=== PATIENT | female | born 1985 | race Caucasian/White ===

== ENCOUNTER 2018-10-27 14:56 | Inpatient (IN) | payer MEDICAID ==
[~2018-10-27 14:56] MED LIST: EPHEDrine 50 MG INJ; OXYTOCIN 30 UNITS/LR 500 ML BAG IV; PHENYLephrine 10 MG INJ
[2018-10-27] MEDS ORDERED: CARBOPROST 250 MCG INJ IM (16:00)
[2018-10-27] MEDS ORDERED: MISOPROSTOL 200 MCG TAB PR ×2 (16:00→19:00)
[2018-10-27] MEDS ORDERED: METHYLERGONOVINE 0.2 MG INJ IM (16:00)
[2018-10-27] MEDS ORDERED: OXYTOCIN 30 UNITS/LR 500 ML IV (16:00)
[2018-10-27 16:32] LABS: ADD MAN DIFF? NO
[2018-10-27 16:33] LABS: WHITE BLOOD COUNT 8.2 10^3/ul (4.8-10.8)
[2018-10-27 16:33] LABS: BASOPHIL # 0.1 10^3/ul (0.0-0.1); BASOPHILS % 0.6 % (0.0-2.0); EOSINOPHILS # 0.1 10^3/ul (0.0-0.5); EOSINOPHILS % 1.1 % (0.0-7.0); HEMATOCRIT 40.3 % (37.0-47.0); HEMOGLOBIN 13.3 g/dl (12.0-16.0); LYMPHOCYTES # 2.2 10^3/ul (0.8-2.9); LYMPHOCYTES % 26.3 % (15.0-51.0); MEAN CORPUSCULAR VOLUME 93.9 fl (82.0-101.0); MEAN PLATELET VOLUME 9.9 fl (7.4-10.4); MONOCYTE # 0.6 10^3/ul (0.3-0.9); MONOCYTES % 6.9 % (0.0-11.0); NEUTROPHIL # 5.1 10^3/ul (1.6-7.5); NEUTROPHILS % 62.5 % (39.0-77.0); NUCLEATED RED BLOOD CELLS% 0.2 /100WBC (0.0-0.0); PLATELET COUNT 273 10^3/UL (140-415); RED BLOOD COUNT 4.29 10^6/ul (4.20-5.40); RED CELL DISTRIBUTION WIDTH 14.9 % (11.5-14.5)
[2018-10-27 16:54] LABS: INR 0.92; PROTIME 12.5 Sec (11.9-14.9)
[2018-10-27 16:55] LABS: PARTIAL THROMBOPLASTIN TIME 26.3 Sec (23.0-35.0)
[2018-10-27] MEDS: LACTATED RINGER'S 1,000 ML IV ×2 (16:59→19:44)
[2018-10-27 17:30] LABS: HEPATITIS B SURFACE ANTIGEN NEGATIVE (NEGATIVE)
[2018-10-27] MEDS ORDERED: HYDROmorphONE 1 MG/5 ML IV SYRINGE IV ×3 (18:00)
[2018-10-27] MEDS ORDERED: FENTAnyl 50 MCG/ML VIAL IV ×3 (18:00)
[2018-10-27] MEDS ORDERED: METOCLOPRAMIDE 10 MG INJ IV (18:00)
[2018-10-27] MEDS ORDERED: HYDROmorphONE 0.5 MG/0.5 ML SYG IV (18:00)
[2018-10-27] MEDS ORDERED: ALBUTEROL 0.083% (NEB) 2.5 MG/3 ML AMP HHN (18:00)
[2018-10-27] MEDS ORDERED: DIPHENHYDRAMINE 50 MG INJ IV ×2 (18:00)
[2018-10-27] MEDS ORDERED: NALOXONE (0.4 MG/ML) INJ IV (18:00)
[2018-10-27] MEDS ORDERED: ONDANSETRON 4 MG INJ IV ×2 (18:00)
[2018-10-27] MEDS ORDERED: morphine SULFATE/PF (10 MG/10 ML) INJ (18:37)
[2018-10-27] MEDS ORDERED: OXYCODONE/ACETAMINOPHEN (5/325) TAB PO (19:00)
[2018-10-27] MEDS ORDERED: NA PHOSPHATE/BIPHOS 133 ML ENEMA PR (19:00)
[2018-10-27 19:30] LABS: CBV Base Excess 0.1 mmol/L; CBV COHb 0.5 %; CBV Oxygen Sat 53.7 mmHG; CBV Total Hemglobin 13.3 g/dl; Cord Blood Venous pO2 30.9 mmHG (15.0-45.0); Fraction OxyHgb Cord Venous 53.2 %; MODE ROOM AIR; MetHgb Cord Venous 0.4 %; Sample Type Blood venous; Site CORD
[2018-10-27 19:33] LABS: AADO2 Cord Arterial 68.2 mmHg; Arterial Cord Blood pCO2 43.3 mmHG (25-50); CBA Base Excess -0.3 mmol/L; CBA COHb 0.9 %; CBA Oxygen Sat 53.2 mmHG; CBA Total Hemglobin 13.1 g/dl; Cord Blood Arterial pO2 29.7 mmHG (15.0-45.0); Fraction OxyHgb Cord Arterial 52.5 %; MODE ROOM AIR; MetHgb Cord Arterial 0.4 %; Site CORD
[2018-10-27] MEDS: OXYTOCIN 30 UNITS/LR 500 ML IV ×2 (20:02→23:39)
[2018-10-27] MEDS: KETOROLAC 30 MG INJ IV (20:40)
[2018-10-27] MEDS: SENNA/DOCUSATE NA (8.6MG/50MG) TAB PO (21:00)
[2018-10-27 22:21] LABS: RAPID PLASMA REAGIN NONREACTIVE (NR)
[2018-10-27] MEDS: HYDROmorphONE 0.5 MG/0.5 ML SYG IV (22:49)
[2018-10-28] MEDS: KETOROLAC 30 MG INJ IV ×2 (03:24→14:59)
[2018-10-28] MEDS: LACTATED RINGER'S 1,000 ML IV ×4 (03:28→23:53)
[2018-10-28] MEDS: HYDROmorphONE 0.5 MG/0.5 ML SYG IV ×2 (07:41→11:50)
[2018-10-28 08:30] LABS: ADD MAN DIFF? NO
[2018-10-28 08:38] LABS: BASOPHILS % 0.5 % (0.0-2.0); EOSINOPHILS # 0.1 10^3/ul (0.0-0.5); EOSINOPHILS % 1.5 % (0.0-7.0); HEMATOCRIT 37.8 % (37.0-47.0); HEMOGLOBIN 12.1 g/dl (12.0-16.0); LYMPHOCYTES # 1.6 10^3/ul (0.8-2.9); LYMPHOCYTES % 19.8 % (15.0-51.0); MEAN CORPUSCULAR HEMOGLOBIN 30.3 pg (29.0-33.0); MEAN CORPUSCULAR VOLUME 94.7 fl (82.0-101.0); MEAN PLATELET VOLUME 9.3 fl (7.4-10.4); MONOCYTE # 0.4 10^3/ul (0.3-0.9); NEUTROPHIL # 5.7 10^3/ul (1.6-7.5); NEUTROPHILS % 72.2 % (39.0-77.0); PLATELET COUNT 208 10^3/UL (140-415); RED BLOOD COUNT 3.99 10^6/ul (4.20-5.40); RED CELL DISTRIBUTION WIDTH 14.9 % (11.5-14.5)
[2018-10-28 08:38] LABS: WHITE BLOOD COUNT 7.9 10^3/ul (4.8-10.8)
[2018-10-28] MEDS: SENNA/DOCUSATE NA (8.6MG/50MG) TAB PO ×2 (09:35→23:36)
[2018-10-28] MEDS: CEFAZOLIN 2 GM/50 ML (PMX) 50 ML IVPB (17:05)
[2018-10-28] MEDS: WITCH HAZEL/GLYCERIN PAD PR (17:37)
[2018-10-28] MEDS: OXYCODONE/ACETAMINOPHEN (5/325) TAB PO (20:00)
[2018-10-28] MEDS: IBUPROFEN 600 MG TAB PO (23:36)
[2018-10-29] MEDS: OXYCODONE/ACETAMINOPHEN (5/325) TAB PO ×4 (00:41→21:06)
[2018-10-29] MEDS: IBUPROFEN 600 MG TAB PO ×2 (06:05→11:30)
[2018-10-29] MEDS: SENNA/DOCUSATE NA (8.6MG/50MG) TAB PO ×2 (10:45→21:05)
[2018-10-29] MEDS: LANOLIN HPA 1 PKT TOP (12:48)
[2018-10-29] MEDS: IBUPROFEN 800 MG TAB PO ×2 (17:45→23:48)
[2018-10-29] MEDS ORDERED: IBUPROFEN 600 MG TAB PO (18:00)
[2018-10-30] MEDS: OXYCODONE/ACETAMINOPHEN (5/325) TAB PO ×5 (00:43→22:18)
[2018-10-30] MEDS: IBUPROFEN 800 MG TAB PO ×3 (05:40→18:28)
[2018-10-30] MEDS: SENNA/DOCUSATE NA (8.6MG/50MG) TAB PO ×2 (08:40→22:18)
[2018-10-30] MEDS: DIPHTH/TET/ACEL PERTUSS (ADULT) 0.5 ML VIAL IM* (09:53)
[2018-10-30] MEDS: MEASLES,MUMPS,RUBELLA VACCINE INJ SC* (09:54)
[2018-10-31] MEDS: IBUPROFEN 800 MG TAB PO ×4 (00:07→17:53)
[2018-10-31] MEDS: SENNA/DOCUSATE NA (8.6MG/50MG) TAB PO (08:40)
[2018-10-31] MEDS: CEFAZOLIN 2 GM/50 ML (PMX) 50 ML IVPB (11:26)
== END 2018-10-31 17:55 | disposition home or self-care (01) | DRG 786 ==
LOC: L-D 14:56 → PP1 10-28 16:12
PROVIDERS: Specialist
PROC: 10D00Z1 Extraction of Products of Conception, Low, Open Approach (ICD-10-PCS; principal; 2018-10-27 17:00)
DX: O65.5 Obstructed labor due to abnormality of maternal pelvic organs (principal); O60.13X0 Preterm labor second trimester with preterm delivery third trimester, not applicable or unspecified; O34.211 Maternal care for low transverse scar from previous cesarean delivery; O36.1930 Maternal care for other isoimmunization, third trimester, not applicable or unspecified; Z3A.35 35 weeks gestation of pregnancy; Z37.0 Single live birth
CPT/HCPCS: 36415; 36600; 82803; 85025; 85610; 85730; 86592; 86850; 86870; 86885; 86900; 86901; 86902; 87340; 88307; 99464